=== PATIENT | male | born 1970 | race Caucasian/White ===

== ENCOUNTER → 2020-04-07 15:00 | Outpatient (BNVA) | payer OTHER, SELFPAY | PROVIDERS: PCP Family Medicine; Referring Provider Family Medicine; Visit Provider Internal Medicine Pulmonary Disease | DX: Z76.89 Persons encountering health services in other specified circumstances (principal) ==

== ENCOUNTER 2020-04-10 15:10 | Outpatient (REF) | payer OTHER, SELFPAY | END 2020-04-10 15:11 | disposition home or self-care (01) | LOC: HO.US 15:10 | PROVIDERS: PCP Family Medicine; Visit Provider Family Medicine | DX: R10.10 Upper abdominal pain, unspecified (principal) ==

== ENCOUNTER 2020-04-21 08:42 | Outpatient (REF) | payer OTHER, SELFPAY ==
--- NOTE | 2020-04-21 | US_ITS ---
EXAMINATION: US ABDOMEN LIMITED CLINICAL INFORMATION: Right upper quadrant abdominal pain. COMPARISON: Abdominal ultrasound dated 11/11/2016 TECHNIQUE: Real-time imaging of the right upper quadrant abdominal viscera. FINDINGS: PANCREAS: Small portions of the pancreas that are visualized appear normal in size and without ductal dilatation or retroperitoneal effusion. Much of the pancreas is obscured by bowel gas. LIVER: The liver is normal in size and smooth in contour. The liver parenchyma is homogeneous, borderline increased similar to prior study. There is no focal hepatic parenchymal lesion or intrahepatic ductal dilatation. GALLBLADDER: The gallbladder is distended normally to 3 cm in diameter. There is no thickening or calculi. There may be some trace non-shadowing sludge on decubitus positioning. Negative sonographic James's sign. No pericholecystic fluid. COMMON BILE DUCT: Normal in caliber measuring 0.50 cm in diameter. RIGHT KIDNEY: The right kidney measures 12.2 cm in length. Parenchyma of normal echogenicity and mild collecting system without overt hydronephrosis. No visible renal calculi or perinephric fluid. FREE FLUID: None. IMPRESSION: 1. Question trace sludge gallbladder. Negative sonographic James's sign. No gallbladder wall thickening or ductal dilatation. 2. Mild fullness right renal collecting system. No visible calculi.
== END 2020-04-21 08:43 | disposition home or self-care (01) ==
LOC: HO.US 08:42
PROVIDERS: PCP Family Medicine; Visit Provider Family Medicine
DX: R10.11 Right upper quadrant pain (principal)
CPT/HCPCS: 76705

== ENCOUNTER 2020-05-20 07:32 | Outpatient (REF) | payer OTHER, SELFPAY | END 2020-05-20 07:33 | disposition home or self-care (01) | LOC: HO.MDS 07:32 | PROVIDERS: PCP Internal Medicine; Visit Provider Internal Medicine Pulmonary Disease | DX: J45.50 Severe persistent asthma, uncomplicated (principal) | CPT/HCPCS: 96372; J0517 ==

== ENCOUNTER → 2020-08-06 15:26 | Outpatient (BNVA) | payer OTHER, SELFPAY | PROVIDERS: PCP Family Medicine; Visit Provider Internal Medicine Pulmonary Disease ==

== ENCOUNTER 2020-08-31 07:25 | Outpatient (REF) | payer OTHER, SELFPAY | END 2020-08-31 07:26 | disposition home or self-care (01) | LOC: HO.MDS 07:25 | PROVIDERS: PCP Family Medicine; Visit Provider Internal Medicine Pulmonary Disease | DX: J45.50 Severe persistent asthma, uncomplicated (principal) | CPT/HCPCS: 96372; J2357 ==

== ENCOUNTER 2023-03-13 09:13 | Outpatient (AMB) | payer OTHER, SELFPAY ==
--- NOTE | 2023-03-13 09:20 | AM.OFFWIN_ITS ---
Intake Vital Signs 03/13/23 09:21 Height 5 ft 8 in Weight 219 lb 2 oz BMI 33.3 BP 124/86 Blood Pressure Location Rt brachial Position Sitting Respiration 12 Pulse 86 Pulse Source Pulse Oximeter Temp 97.8 F Temp Source Temporal Artery Scan Pulse Oximetry (%) 98 Oxygen Delivery Method Room Air Intake Visit Reasons: ankle swelling post bee sting Intake Note: Patient states that he was stung yesterday and hasn't gone down since. Patient would like refills on all 4 of his medications as well. 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 Patient states that he was stung yesterday and swelling hasn't gone down since. He has been taking zyrtec/benadryl. He denies any difficulty swallowing/tightness in his throat/difficulty breathing. He states it has been awhile since his last tetanus shot. [facility] Social History Housing: House Patient Tobacco Use Status: Never used Tobacco e-Cigarette/Vaping Use: Never Used Second Hand Smoke Exposure: No service: No Current occupational status: employed Current occupational exposures/hazards: No Cognitive needs: No Hearing needs: No Vision needs: No Review of Systems Const Denies chills, Denies fatigue, Denies fever(s), Denies headache(s) and Denies weakness ENT Denies dizziness and Denies headache(s) Card Denies chest pain, Denies lightheadedness, Denies dyspnea and Denies other (Palpitations) Resp Denies cough, Denies dyspnea, Denies wheezing and Denies other ( shortness of breath) Musc Denies numbness and Denies tingling Neuro Denies dizziness, Denies headache(s), Denies numbness, Denies tingling, Denies paresthesias and Denies weakness Psych Denies anxiety and Denies depression Endo Denies fatigue Aller/Immun Denies wheezing Physical Exam Vital Signs: Last Vital Signs Temp 97.8 F 03/13/23 09:21 Pulse 86 03/13/23 09:21 Resp 12 03/13/23 09:21 BP 124/86 03/13/23 09:21 Pulse Ox 98 03/13/23 09:21 Oxygen Delivery Method Room Air 03/13/23 09:21 BMI result Body Mass Index 33.3 Const General: no acute distress and well developed Nutritional Appearance: well nourished Orientation/consciousness: patient oriented x3 HEENT Head: Yes normocephalic and Yes atraumatic Eyes General: appearance normal, both eyes and all related structures Pupils: Equal, round and reactive pupils present EOM: EOMs intact bilaterally Resp Effort & Inspection: normal respiratory effort Auscultation: clear to auscultation bilaterally Cardio Rate: regular rate Rhythm: regular rhythm Heart sounds: S1 normal heart sound present, S2 normal heart sound present, no gallops, no murmurs and no rubs Neuro General: patient oriented x3 and gait normal Cranial nerves: Yes Equal, round and reactive pupils present Extrem Other: Severe R ankle swelling Psych Affect: normal affect Assessment & Plan Assessment & Plan (1) Bee sting: Code(s): T63.441A - Toxic effect of venom of bees, accidental (unintentional), initial encounter Plan: Bee/yellow jacket stings at right ankle. No stingers in wound; likely yellow jacket stings Moderately severe swelling at right ankle. Will give him a script for a prednisone taper and he should use ice and elevation. Continue Zyrtec during the day and he can use Benadryl at night Patient notes that reactions to stings have gotten worse as he has gotten older. Will give him a script for an EpiPen. He is overdue for a tetanus shot which he will receive today (2) Ankle swelling: Code(s): M25.473 - Effusion, unspecified ankle Plan: As above (3) Immunization counseling: Code(s): Z71.85 - Encounter for immunization safety counseling Plan: As above Orders: Orders TDaP Immunization Today Z23 - Encounter for immunization Medications: New prednisone 4 tabs daily for 4 days, 3 tabs daily for 2 days, 2 tabs daily for 2 days, 1 tab daily for 2 days PO daily; 28 tabs 0RF 10 days epinephrine (EpiPen 2-Jeyson) 0.3 mg (0.3 mL) IM Q4H PRN 2 ea 2RF anaphylaxis 30 days Coding Level of Care Code Est Pt Level 3 (51533) Diagnoses Bee sting T63.441A Ankle swelling M25.473 Immunization counseling Z71.85
[2023-03-13 09:21] VITALS: BP 124/86; PULSE 86; RESP 12; TEMP 36.6; O2SAT 98; BMI 33.3
== END 2023-03-13 09:51 | disposition home or self-care (01) ==
PROVIDERS: PCP Family Medicine; Visit Provider Family Medicine
DX: M25.471 Effusion, right ankle (principal); T63.441A Toxic effect of venom of bees, accidental (unintentional), initial encounter
CPT/HCPCS: 90471; 90715; 99213

== ENCOUNTER 2023-09-15 10:54 | Outpatient (AMB) | payer OTHER, SELFPAY ==
--- NOTE | 2023-09-15 10:55 | MHC.PC.OV ---
Vital Signs 09/15/23 10:59 Height 5 ft 8 in Weight 217 lb BMI 33.0 BP 130/86 Blood Pressure Location Lt brachial Position Sitting Pulse 87 Pulse Source Pulse Oximeter Pulse Oximetry (%) 96 Oxygen Delivery Method Room Air Intake Visit Reasons: CPE Intake Note: Pt presents to the office today for a CPE. Pt states he is feeling okay but states he is looking for anxiety medications again because he has been having anxiety after resigning from his job. He also would like his hormone levels checked as well. Allergies No Known Allergies Allergy (Verified 09/15/23 11:00) Tobacco use date assessed: 09/15/23 Dental Screening Dental Screen Date: 09/15/23 Did you have a dental visit in the last 12 months?: Yes Did you have a dental problem in the last 6 months where you did not have access to dental care?: No Was dental information given to patient?: Patient has dentist HPI CPE HPI Details 53 y/o male presents for a CPE with f/u labs and health maintenance. No recent labs to review. Pt requests a refill of his citalopram as he notes this does help. PFSH Family History (Updated 09/15/23 @ 11:01 by Aster Yee MA) Other Mental health disorder Social History Housing: House Patient Tobacco Use Status: Never used Tobacco e-Cigarette/Vaping Use: Never Used Second Hand Smoke Exposure: No service: No Current occupational status: employed Current occupational exposures/hazards: No Cognitive needs: No Hearing needs: No Vision needs: No Questionnaire PHQ-9 Over the last 2 weeks, how often have you been bothered by any of the following problems? 1. Little interest or pleasure in doing things: not at all 2. Feeling down, depressed, or hopeless: not at all 3. Trouble falling or staying asleep, or sleeping too much: nearly every day 4. Feeling tired or having little energy: nearly every day 5. Poor appetite or overeating: more than half the days 6. Feeling bad about yourself - or that you are a failure or have let yourself or your family down: more than half the days 7. Trouble concentrating on things, such as reading the newspaper or watching television: more than half the days 8. Moving or speaking so slowly that other people could have noticed. Or the opposite - being so fidgety or restless that you have been moving around a lot more than usual: not at all 9. Thoughts that you would be better off or of hurting yourself in some way: not at all Total score: 12 Depression Screening Interpretation: Positive Depression Screening Done: Yes 55549 - PHQ-9 Billing: Yes Source: Developed by Drs. Huseyin Lara, Kelli Tierney, Kosta Sparks and colleagues, with an educational alee from [employer]. Thrive Questionnaire Date Thrive assessed: 09/15/23 I am a: Patient What is your living situation today?: I have a steady place to live Within the past 12 months, did the food you bought not last and you didn't have the money to get more?: Never true Within the past 12 months, did you worry whether your food would run out before you got money to buy more?: Never true Do you have trouble paying for medicines?: No Do you have trouble getting transportation to medical appointments?: No Do you have trouble paying your heating and electricity bill?: No Do you have trouble taking care of your child, family member or friend?: No Do you have trouble with day-to-day activities such as bathing, preparing meals, shopping, managing finances, etc.?: No Are you currently unemployed and looking for a job?: Yes Are you interested in more education?: No THRIVE Score: 0 AUDIT C Alcohol Use Questionnaire (AUDIT-C) 1. How often do you have a drink containing alcohol?: 4 or more times a week 2. How many drinks containing alcohol do you have on a typical day when you are drinking?: 1 or 2 3. How often do you have six or more drinks on one occasion?: Never Total Score: 4 ADRIAN-7 AMB Questionnaire ADRIAN-7 Date ADRIAN - 7 assessed: 09/15/23 Feeling nervous, anxious, or on edge: 3 = Nearly every day Not being able to stop or control worryin = More than half the days Worrying too much about different things: 3 = Nearly every day Trouble relaxin = More than half the days Being so restless that it is hard to sit still: 0 = Not at all Becoming easily annoyed or irritable: 3 = Nearly every day Feeling afraid as if something awful might happen: 3 = Nearly every day Total ADRIAN-7 score (0-4 normal; 5-9 mild; 10-14 moderate; 15-21 severe): 16 Source: Developed by Drs. Huseyin Lara, Kelli Tierney, Kosta Sparks and colleagues, with an educational alee from [employer]. ADRIAN-7 Assessment Billing ADRIAN-7 Assessment Tool: ADRIAN-7 Assessment 78230 Physical exam (Primary Care) Vital Signs: Last Vital Signs Pulse 87 09/15/23 10:59 BP 130/86 09/15/23 10:59 Pulse Ox 96 09/15/23 10:59 Oxygen Delivery Method Room Air 09/15/23 10:59 BMI result Body Mass Index 33.0 Tobacco/Smoking Status: Tobacco use Status Tobacco use date assessed 09/15/23 09/15/23 11:06 Patient Tobacco Use Status Never used Tobacco 09/15/23 11:06 e-Cigarette/Vaping Use Never Used 09/15/23 11:06 PHQ-9: PHQ-9 Score PHQ-9: Total score 12 09/15/23 11:06 Depression Screening Interpretation: Positive Thrive Assessment: Date of Thrive Assessment Date Thrive assessed 09/15/23 09/15/23 11:06 Assessment and Plan Assessment & Plan (1) Annual physical exam: Code(s): Z00.00 - Encounter for general adult medical examination without abnormal findings Plan: 53-year-old?male?presents?for?complete?physical?exam Encouraged?healthy?diet?with?active?lifestyle?and?plenty?of?exercise (2) Obstructive sleep apnea: Code(s): G47.33 - Obstructive sleep apnea (adult) (pediatric) Plan: Only?using?his?CPAP?intermittently?and?he?does?note?that?he?has?fatigue. Encouraged?him?to?use?this?more?consistently. (3) Anxiety: Code(s): F41.9 - Anxiety disorder, unspecified Plan: Anxiety?has?resumed. Citalopram?had?helped?in?the?past?and?we?will?restart?this. Also?encouraged?him?to?wean?off?of?alcohol (4) GERD (gastroesophageal reflux disease): Code(s): K21.9 - Gastro-esophageal reflux disease without esophagitis Plan: Will?trial?famotidine Avoid?eating?late?at?night?and?avoid?alcohol?at?night (5) Low libido: Code(s): R68.82 - Decreased libido Plan: Check?testosterone Patient?notes?that?he?has?been?trying?testosterone?he?acquired?from?the?Internet.??He?will?stop?taking?this?times?a?couple?more?weeks?to?get?his?T?levels?checked. Advised him?that?taking?testosterone?unsupervised?can?lead?to?significant?adverse?effects.??Patient?understands (6) Screening for prostate cancer: Code(s): Z12.5 - Encounter for screening for malignant neoplasm of prostate Plan: Check?PSA (7) Screening for colon cancer: Code(s): Z12.11 - Encounter for screening for malignant neoplasm of colon Plan: Referred?to?GI?for?1st?colonoscopy Orders: Orders Comprehensive [place]. Panel Fast Today Z00.00 - Encounter for general adult medical examination without abnormal findings Lipid Panel Today Z00.00 - Encounter for general adult medical examination without abnormal findings Microalbumin, Random (w Creat) Today I10 - Essential (primary) hypertension TSH reflex Free T4 Today Z00.00 - Encounter for general adult medical examination without abnormal findings UA and rflx microscopic Today Z00.00 - Encounter for general adult medical examination without abnormal findings Testosterone, Free/Total Today Z00.00 - Encounter for general adult medical examination without abnormal findings Prostate Specific Antigen Scr Today Z12.5 - Encounter for screening for malignant neoplasm of prostate Referrals Gastroenterology Referral Z12.11 - Encounter for screening for malignant neoplasm of colon Medications: New fluticasone propionate 220 mcg/actuation 2 puffs inhalation BID 12 grams 3RF 30 days famotidine 20 mg PO BEDTIME 90 tabs 1RF 90 days Changed From citalopram 20 mg PO DAILY 30 tabs 3RF F41.9 - Anxiety disorder, unspecified To citalopram 20 mg PO DAILY 30 tabs 3RF 30 days F41.9 - Anxiety disorder, unspecified Refilled levalbuterol HCl 1.25 mg (3 mL) inhalation Q8H 270 mL 3RF 30 days Z00.00 - Encounter for general adult medical examination without abnormal findings Discontinued omeprazole Discontinued Reason: Doctor's Order 40 mg PO DAILY 10 days 10 caps 0RF Coding Level of Care Code Est Pt Level 3 (46417) Est Pt Prev Care 40-64y(33408) Diagnoses Annual physical exam Z00.00 Obstructive sleep apnea G47.33 Anxiety F41.9 GERD (gastroesophageal reflux disease) K21.9 Low libido R68.82 Screening for prostate cancer Z12.5 Screening for colon cancer Z12.11 Additional Codes ADRIAN-7 Assessment Billing - ADRIAN-7 Assessment Tool: ADRIAN-7 Assessment 21111 ([id number])
[2023-09-15 10:59] VITALS: BP 130/86; PULSE 87; O2SAT 96; BMI 33.0
== END 2023-09-15 11:35 | disposition home or self-care (01) ==
PROVIDERS: PCP Family Medicine; Visit Provider Family Medicine
DX: Z00.00 Encounter for general adult medical examination without abnormal findings (principal); G47.33 Obstructive sleep apnea (adult) (pediatric); F41.9 Anxiety disorder, unspecified; K21.9 Gastro-esophageal reflux disease without esophagitis; R68.82 Decreased libido; Z12.5 Encounter for screening for malignant neoplasm of prostate; Z12.11 Encounter for screening for malignant neoplasm of colon
CPT/HCPCS: 96127; 99213; 99396

== ENCOUNTER 2023-10-13 11:09 | Outpatient (REF) | payer OTHER, SELFPAY ==
[2023-10-13 15:42] LABS: Alanine Aminotransferase 24 U/L (0-40); Alkaline Phosphatase 53 U/L (39-117); Anion Gap 11 (12-20); Aspartate Amino Transferase 19 U/L (5-37); Bilirubin Total 0.4 mg/dL (0.0-1.0); Blood Urea Nitrogen 12 mg/dL (9-16); Carbon Dioxide 26 mmol/L (22-29); Chloride 106 mmol/L (96-108); Cholesterol 205 mg/dL (<200); Estimated Glomerular Filt Rate > 60; Glucose Fasting 110 mg/dL (60-99); HDL Cholesterol 64 mg/dL (>40); LDL Cholesterol Calculated 133 mg/dL (<100); Potassium 4.1 mmol/L (3.3-5.1); Sodium 139 mmol/L (135-145); Total Protein 6.8 g/dL (6.5-8.0); Triglycerides 44 mg/dL (<150)
[2023-10-13 15:52] LABS: Prostate Specific Antigen Scr 0.43 ng/mL (<0.05-4.0)
[2023-10-13 15:57] LABS: TSH reflex Free T4 1.08 uIU/mL (0.32-4.0)
[2023-10-18 20:08] LABS: Testosterone, Free 73.3 pg/mL (35.0-155.0); Testosterone, Total 434 ng/dL (250-1100)
== END 2023-10-13 11:10 | disposition home or self-care (01) ==
LOC: HO.WFDLDS 11:09
PROVIDERS: Visit Provider Family Medicine
DX: Z00.00 Encounter for general adult medical examination without abnormal findings (principal); Z12.5 Encounter for screening for malignant neoplasm of prostate; Z13.6 Encounter for screening for cardiovascular disorders
CPT/HCPCS: 36415; 80053; 80061; 84153; 84402; 84403; 84443

== ENCOUNTER 2023-10-27 13:16 | Outpatient (AMB) | payer OTHER, SELFPAY ==
[2023-10-27 13:20] VITALS: BP 138/80; PULSE 94; O2SAT 97; BMI 33.3
--- NOTE | 2023-10-27 13:20 | MHC.PC.OV ---
Vital Signs 10/27/23 13:20 Height 5 ft 8 in Weight 219 lb BMI 33.3 BP 138/80 Blood Pressure Location Lt brachial Position Sitting Pulse 94 Pulse Source Pulse Oximeter Pulse Oximetry (%) 97 Oxygen Delivery Method Room Air Intake Visit Reasons: f/u anxiety and labwork Intake Note: Patient is here for follow up on anxiety and lab work. Patient was unable to get his inhaler due to insurance not paying for it. Allergies No Known Allergies Allergy (Verified 10/27/23 13:24) Tobacco use date assessed: 10/27/23 Dental Screening Dental Screen Date: 09/15/23 HPI f/u anxiety and labwork HPI Details 53 y/o male presents to f/u anxiety and labwork. Checked testosterone for low libido. Labs were drawn 10/13/23. Reviewed labs with pt. Elevated fasting glucose of 110. Last A1c 06/02/20 5.3%. A1c today 5.4%. Triglycerides 44. TC 205. LDL 133. HDL 64. Testosterone levels are fine. Pt notes he feels like he has not needed citalopram for a couple weeks but he feels like he needs a therapist to discuss the job he has lost. PFSH Family History Other Mental health disorder Social History Housing: House Patient Tobacco Use Status: Never used Tobacco e-Cigarette/Vaping Use: Never Used Second Hand Smoke Exposure: No service: No Current occupational status: employed Current occupational exposures/hazards: No Cognitive needs: No Hearing needs: No Vision needs: No Questionnaire Thrive Questionnaire Date Thrive assessed: 09/15/23 ADRIAN-7 AMB Questionnaire ADRIAN-7 Date ADRIAN - 7 assessed: 09/15/23 Source: Developed by Drs. Huseyin Lara, Kelli Tierney, Kosta Sparks and colleagues, with an educational alee from [employer]. Review of Systems Const Denies chills, Denies fatigue, Denies fever(s), Denies headache(s) and Denies weakness ENT Denies dizziness and Denies headache(s) Card Denies dyspnea Resp Denies cough, Denies dyspnea, Denies wheezing and Denies other (shortness of breath) Musc Denies numbness and Denies tingling Neuro Denies dizziness, Denies headache(s), Denies numbness, Denies tingling and Denies weakness Psych Denies anxiety and Denies depression Endo Denies fatigue Aller/Immun Denies wheezing Physical exam (Primary Care) Vital Signs: Last Vital Signs Pulse 94 10/27/23 13:20 BP 138/80 10/27/23 13:20 Pulse Ox 97 10/27/23 13:20 Oxygen Delivery Method Room Air 10/27/23 13:20 BMI result Body Mass Index 33.3 Tobacco/Smoking Status: Tobacco use Status Tobacco use date assessed 10/27/23 10/27/23 13:31 Patient Tobacco Use Status Never used Tobacco 10/27/23 13:31 e-Cigarette/Vaping Use Never Used 10/27/23 13:31 Thrive Assessment: Date of Thrive Assessment Date Thrive assessed 09/15/23 10/27/23 13:31 Const General: well developed; No acute distress Nutritional Appearance: well nourished Orientation/consciousness: patient oriented x3 HENMT Head: Yes normocephalic and Yes atraumatic Eyes General: appearance normal, both eyes and all related structures Pupils: Equal, round and reactive pupils present EOM: EOMs intact bilaterally Resp Effort & Inspection: normal respiratory effort Neuro General: patient oriented x3 and gait normal Cranial nerves: Yes Equal, round and reactive pupils present Psych Affect: normal affect Results AMB Hemoglobin A1c AMB Hemoglobin A1c 5.4 % Last Edit by Jessica Miller CMA on 10/27/23 14:21 Assessment and Plan Assessment & Plan (1) Anxiety: Code(s): F41.9 - Anxiety disorder, unspecified Plan: Stable?at?present. Patient?uses?citalopram?for?several?weeks?or?a?month?at?a?time?and?then?discontinues?it?when?he?is?feeling?okay. Advised?him?that?the?medication?works?better?when?he?uses?it?for?long?periods?of?time. Discussing?a?compromise,?he?will?consider?stressors?in?his?life?as?well?as?how?he?is?feeling?before?discontinuing?medication. (2) Elevated fasting blood sugar: Code(s): R73.01 - Impaired fasting glucose Plan: A1c: 5.4% Within?normal?range Encouraged?diet?lower?in?sugars?and?starches (3) Low libido: Code(s): R68.82 - Decreased libido Plan: Testosterone?level?is?okay Offered?referral?to?urology (4) Hypercholesterolemia: Code(s): E78.00 - Pure hypercholesterolemia, unspecified Plan: Mildly?elevated?LDL?cholesterol?but?his?HDL?ratios?are?good (5) Screening for prostate cancer: Code(s): Z12.5 - Encounter for screening for malignant neoplasm of prostate Plan: PSA?is?within?normal?limits Orders: Orders AMB Hemoglobin A1c Today Z13.9 - Encounter for screening, unspecified Medications: New mometasone 200 mcg/actuation 1 puff inhalation BID 30 days 13 grams 3RF Discontinued fluticasone propionate 220 mcg/actuation Discontinued Reason: Doctor's Order 2 puffs inhalation BID 30 days 12 grams 3RF Coding Level of Care Code Est Pt Level 4 (42241) Diagnoses Anxiety F41.9 Elevated fasting blood sugar R73.01 Low libido R68.82 Hypercholesterolemia E78.00 Screening for prostate cancer Z12.5
== END 2023-10-27 14:27 | disposition home or self-care (01) ==
PROVIDERS: PCP Family Medicine; Visit Provider Family Medicine
DX: F41.9 Anxiety disorder, unspecified (principal); R73.01 Impaired fasting glucose; R68.82 Decreased libido; E78.00 Pure hypercholesterolemia, unspecified
CPT/HCPCS: 83036; 99214

== ENCOUNTER 2024-03-23 11:49 | Outpatient (AMB) | payer OTHER, SELFPAY ==
[2024-03-23 11:56] VITALS: BP 130/80; PULSE 86; TEMP 36.6; O2SAT 98
--- NOTE | 2024-03-23 11:56 | MHC.OFFWIV ---
Intake Vital Signs 03/23/24 11:56 Height 5 ft 8 in BP 130/80 Blood Pressure Location Rt brachial Position Sitting Pulse 86 Pulse Source Pulse Oximeter Temp 97.9 F Temp Source Temporal Artery Scan Pulse Oximetry (%) 98 Intake Visit Reasons: EP lower back pain Intake Note: pt is here for lower back pain, denies injury Patient Tobacco Use Status: Never used Tobacco Allergies No Known Allergies Allergy (Verified 03/23/24 11:57) Do you need a note to return to daycare/school/sports/work: No HPI HPI Comments History of Present Illness Details he presents to office with back pain Better with standing Worse with sitting and movement Hx of back pain in past and has gone to PT in past for it Most recent flare he had stress and was driving to [employer] often and sleeping in a bad bed Tried icing and stretching but pain worsening No trauma Located both sides lower back Feels radiation into gluteal region and legs No urine or bowel incontinence No saddle parethesias Pain level is 9/10 intermittent He has been trying to stretch, icy hot Naproxen and motrin with ice No complete resolution PFSH Family History Other Mental health disorder Social History Housing: House Patient Tobacco Use Status: Never used Tobacco e-Cigarette/Vaping Use: Never Used Second Hand Smoke Exposure: No service: No Current occupational status: employed Current occupational exposures/hazards: No Cognitive needs: No Hearing needs: No Vision needs: No Review of Systems Const Denies chills, Denies fatigue, Denies fever(s) and Denies frequent falls Card Denies chest pain and Denies dyspnea Resp Denies cough and Denies dyspnea GI Denies abdominal pain, Denies change in bowel habits and Denies fecal incontinence Denies hematuria and Denies urinary incontinence Musc Reports back pain and Denies tingling Skin/Breast Denies rash Neuro Denies frequent falls, Denies tingling and Denies paresthesias Endo Denies fatigue Physical Exam Vital Signs: Last Vital Signs Temp 97.9 F 03/23/24 11:56 Pulse 86 03/23/24 11:56 BP 130/80 03/23/24 11:56 Pulse Ox 98 03/23/24 11:56 General: Non-toxic, NAD. Speaking full sentences. Skin: Warm dry throughout. No posterior back of flank ecchymosis or rash Eye: EOMI Respiratory: CTA bilaterally. No wheezes, rales or rhonchi Cardiac: RRR. No murmur MSK: Standing. No midline tenderness. + TTP bilateral lumbar paravertebral muscles. + flexion of thigh to abdomen. Pain with standing SLR bilaterally. + glutea pain bilaterally. Neurology: A/O x 3. No aphasia or facial droop. Gait without abnormality Psych: Good mood and affect Assessment & Plan Assessment & Plan (1) Lumbar back pain: Code(s): M54.50 - Low back pain, unspecified Plan: Patient seen and evaluated. 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
== END 2024-03-23 13:33 | disposition home or self-care (01) ==
PROVIDERS: PCP Family Medicine; Visit Provider Physician Assistant
DX: M54.50 Low back pain, unspecified (principal)

== ENCOUNTER → 2024-03-23 11:49 | Outpatient (BNVA) | payer OTHER, SELFPAY | PROVIDERS: PCP Family Medicine | DX: M54.50 Low back pain, unspecified (principal) | CPT/HCPCS: 99212 ==

== ENCOUNTER 2025-01-06 14:52 | Outpatient (AMB) | payer OTHER, SELFPAY ==
--- NOTE | 2025-01-06 15:20 | AM.OFFWIN_ITS ---
Intake Vital Signs 01/06/25 15:21 Height 5 ft 8 in Weight 213 lb BMI 32.4 BP 118/86 Blood Pressure Location Rt brachial Position Sitting Pulse 84 Pulse Source Pulse Oximeter Temp 98.9 F Temp Source Oral Pulse Oximetry (%) 95 Oxygen Delivery Method Room Air Intake Visit Reasons: EP Tick bite, infected? Intake Note: presents with red, sensitive, thickened, enlarging area on right mid abdomen x2 weeks after a tick bite. Also c/o headache since this happened Patient Tobacco Use Status: Never used Tobacco Allergies No Known Allergies Allergy (Verified 01/06/25 15:28) Do you need a note to return to daycare/school/sports/work: No HPI HPI Comments History of Present Illness Details History - The patient is a 54-year-old male pres enting with a tick bite. - The patient reports being bitten by a tick a couple of weeks ago, noticing a red spot with a tiny black center. - He attempted to remove the tick and ap plied Neosporin to the area. - A week ago, while on vacation in [place] , he observed the area getting larger. - The patient has a history of Lyme dise ase, previously treated with IV antibiotics for a bullseye rash on the leg. - Currently, the area is warm and stiff when he touches it. - He has been keeping the area clean and putting antibiotic ointment on it. - He denies fever, chills, joint pain, r ashes or other lesions. Physical Exam General: Cooperative, healthy appearing, comfortable, no acute distress and well developed Orientation: Patient oriented x3 Respiratory: Normal respiratory effort and able to speak in complete sentences. Skin: Erythematous, flat, oval shaped area noted on the right mid abdomen. No induration noted. No discharge or bleeding noted. No streaking noted. Neuro: Patient oriented x3 Patient was informed and verbally consented to the use of an ambient scribe for clinic note documentation during this visit. PFSH Family History Other Mental health disorder Social History Housing: House Patient Tobacco Use Status: Never used Tobacco e-Cigarette/Vaping Use: Never Used Second Hand Smoke Exposure: No service: No Current occupational status: employed Current occupational exposures/hazards: No Cognitive needs: No Hearing needs: No Vision needs: No Review of Systems Const All systems reviewed & are unremarkable except as noted in HPI and below Physical Exam Vital Signs: Last Vital Signs Temp 98.9 F 01/06/25 15:21 Pulse 84 01/06/25 15:21 BP 118/86 01/06/25 15:21 Pulse Ox 95 01/06/25 15:21 Oxygen Delivery Method Room Air 01/06/25 15:21 BMI result Body Mass Index 32.4 Assessment & Plan Assessment & Plan (1) Tick bite of abdomen: Code(s): S30.861A - Insect bite (nonvenomous) of abdominal wall, initial encounter; W57.XXXA - Bitten or stung by nonvenomous insect and other nonvenomous arthropods, initial encounter Qualifiers: Encounter type: initial encounter Qualified Code(s): S30.861A - Insect bite (nonvenomous) of abdominal wall, initial encounter; W57.XXXA - Bitten or stung by nonvenomous insect and other nonvenomous arthropods, initial encounter Plan Most likely tick bite with cellulitis Plan - Keep area clean and dry - Initiate doxycycline treatment to prevent Lyme disease and manage cellulitis. - Advise the patient to monitor the area for changes and avoid sun exposure while on doxycycline. - Recommend topical triple antibiotic ointment for local application - follow up with PCP - can order a Lyme panel if necessary - watch for signs of worsening infection Medications: New doxycycline hyclate 100 mg PO BID 20 tabs 0RF 10 days mupirocin 2% 1 appl topical TID 22 grams 0RF Coding Level of Care Code Est Pt Level 3 (92408) Diagnoses Tick bite of abdomen, initial encounter S30.861A; W57.XXXA Encounter type: initial encounter
[2025-01-06 15:21] VITALS: BP 118/86; PULSE 84; TEMP 37.2; O2SAT 95; BMI 32.4
--- OUTSIDE RECORDS SUMMARY | 2025-01-06 15:22 | XMS_ITS | Clinical Summary ---
Author Organization [facility] [employer] [facility] lin Address [address] [facility] [place] [address] Care Team Providers Care Business Continuity Planning Director Name Role Phone Rajiv Lyons MD Primary Care Provider Social History Tobacco Use Types Packs/Day Years Used Date Smoking Tobacco: Never Assessed Sex and Gender Information Value Date Recorded Sex Assigned at Not on file Legal Sex Male 10:05 AM EDT Gender Identity Not on file Sexual Orientation Not on file Plan of Treatment Health Maintenance Due Date Last Done Comments Colorectal Cancer: COLONOSCO PY Screening every 10 yrs (or Modifier) 1972 Depression: Screening Annual ly using PHQ-2/9 in Adults 18 yrs or above (or HM Modifier)([facility]) 1990 Hepatitis C Virus Infection in Adolescents and Adults: Screening (or Modifier) ([facility]) 1990 [facility] Screening Reminder: Tamia camp for all adults ([facility]) 1990 Tobacco Smoking Cessation: i n Adults excluding Women: Behavioral and Pharmacotherapy Interventions ([facility]) 1990 DTaP/Tdap/Td Vaccines ([facility]) (1 - Tdap) 1991 Colorectal Cancer Screening 45 -75 Yrs (or HM Modifier ) 2017 Colorectal Cancer: FLEXIBLE SIGMOIDOSCOPY Screening every 5 yrs 2017 Colorectal Cancer: Fecal Imm unochemical Test (FIT) Annually [facility] 2017 Colorectal Cancer: High-sens itivity gFOBT Screening Annually [facility] 2017 Colorectal Cancer: Stool Col oguard Screening every 3 yrs 2017 Colorectal Cancer:CT Colonography Screening every 5 yr s 2017 Pneumococcal Vaccination Scr eening: Patients 50+ yrs of age ([facility]) (1 of 1 - PCV) 2022 Zoster/Shingles Vaccine Seri es Screening: Adults aged 18+ yrs (or HM Modifiers)([facility]) (1 of 2) 2022 COVID-19 Vaccine Screening: Initial Series and Booster Status ([facility]) (2023- season) 2024 Flu Vaccination: Yearly for ages 18mos through 64 years (or Modifier)([facility]) 01/31/2025 Medical Devices Not on file Insurance [facility] Care Teams Business Continuity Planning Director Relationship Specialty Start Date End Date Rajiv Lyons MD [address] [place] [phone] PCP - General 04/18/20
== END 2025-01-06 15:51 | disposition home or self-care (01) ==
PROVIDERS: PCP Family Medicine; Visit Provider Physician Assistant Medical
DX: S30.861A Insect bite (nonvenomous) of abdominal wall, initial encounter (principal); W57.XXXA Bitten or stung by nonvenomous insect and other nonvenomous arthropods, initial encounter

== ENCOUNTER → 2025-01-06 14:52 | Outpatient (BNVA) | payer OTHER, SELFPAY | PROVIDERS: PCP Family Medicine; Visit Provider Physician Assistant Medical | DX: S30.861A Insect bite (nonvenomous) of abdominal wall, initial encounter (principal); W57.XXXA Bitten or stung by nonvenomous insect and other nonvenomous arthropods, initial encounter | CPT/HCPCS: 99212 ==

== ENCOUNTER 2025-03-28 09:28 | Outpatient (AMB) | payer OTHER, SELFPAY ==
--- NOTE | 2025-03-28 09:31 | A.OFFPC_ITS ---
Vital Signs 03/28/25 09:34 Height 5 ft 8 in Weight 211 lb 6 oz BMI 32.1 BP 142/80 H Blood Pressure Location Lt brachial Position Sitting Respiration 14 Pulse 86 Pulse Source Pulse Oximeter Temp 97.5 F Temp Source Oral Pulse Oximetry (%) 98 Oxygen Delivery Method Room Air Intake Visit Reasons: F/u Tick bite Intake Note: CPE Collar Worker Required: No Allergies No Known Allergies Allergy (Verified 03/28/25 09:32) Medication List - Last Reconciled 03/28/25 by Rajiv Gaines MD citalopram 20 mg orally takes during fall/winter; doxycycline hyclate 100 mg PO BID 10 days levalbuterol tartrate 45 mcg/actuation 2 puffs inhalation Q4-6H PRN 90 days mupirocin 2% 1 appl topical TID Tobacco use date assessed: 03/28/25 Dental Screening Dental Screen Date: 03/28/25 Did you have a dental visit in the last 12 months?: No Did you have a dental problem in the last 6 months where you did not have access to dental care?: No Was dental information given to patient?: Patient declined HPI F/u Tick bite HPI Details 54 y/o male presents today for a jamey osorio Had last seen the walk in clinic 01/06/25 for a tick bite. They had started him on doxycycline 10 days. Pt has never had a colonoscopy. PFSH Family History Other Mental health disorder Social History Housing: House Patient Tobacco Use Status: Never used Tobacco e-Cigarette/Vaping Use: Never Used Second Hand Smoke Exposure: No service: No Current occupational status: employed Current occupational exposures/hazards: No Cognitive needs: No Hearing needs: No Vision needs: No Questionnaire PHQ-9 Over the last 2 weeks, how often have you been bothered by any of the following problems? 1. Little interest or pleasure in doing things: several days 2. Feeling down, depressed, or hopeless: several days 3. Trouble falling or staying asleep, or sleeping too much: several days 4. Feeling tired or having little energy: several days 5. Poor appetite or overeating: several days 6. Feeling bad about yourself - or that you are a failure or have let yourself or your family down: several days 7. Trouble concentrating on things, such as reading the newspaper or watching television: several days 8. Moving or speaking so slowly that other people could have noticed. Or the opposite - being so fidgety or restless that you have been moving around a lot more than usual: not at all 9. Thoughts that you would be better off or of hurting yourself in some way: not at all Total score: 7 Depression Screening Interpretation: Positive Depression Screening Done: Yes 98854 - PHQ-9 Billing: Yes Source: Developed by Drs. Huseyin Lara, Kelli Tierney, Kosta Sparks and colleagues, with an educational alee from [employer]. Thrive Questionnaire Date Thrive assessed: 03/28/25 I am a: Patient What is your living situation today?: I have a steady place to live Within the past 12 months, did the food you bought not last and you didn't have the money to get more?: Never true Within the past 12 months, did you worry whether your food would run out before you got money to buy more?: Never true Do you have trouble paying for medicines?: No Do you have trouble getting transportation to medical appointments?: No Do you have trouble paying your heating and electricity bill?: No Do you have trouble taking care of your child, family member or friend?: No Do you have trouble with day-to-day activities such as bathing, preparing meals, shopping, managing finances, etc.?: No Are you currently unemployed and looking for a job?: Yes Are you interested in more education?: No Please select the resources that you would like help with: None Currently or been in a relationship where the following occur: No concerns reported THRIVE Score: 0 AUDIT C Alcohol Use Questionnaire (AUDIT-C) 1. How often do you have a drink containing alcohol?: 2-3 times a week 2. How many drinks containing alcohol do you have on a typical day when you are drinking?: 1 or 2 3. How often do you have six or more drinks on one occasion?: Never Total Score: 3 ADRIAN-7 AMB Questionnaire ADRIAN-7 Date ADRIAN - 7 assessed: 03/28/25 Feeling nervous, anxious, or on edge: 1 = Several days Not being able to stop or control worryin = Several days Worrying too much about different things: 1 = Several days Trouble relaxin = Several days Being so restless that it is hard to sit still: 0 = Not at all Becoming easily annoyed or irritable: 1 = Several days Feeling afraid as if something awful might happen: 1 = Several days Total ADRIAN-7 score (0-4 normal; 5-9 mild; 10-14 moderate; 15-21 severe): 6 Source: Developed by Drs. uHseyin Lara, Kelli Tierney, Kosta Sparks and colleagues, with an educational alee from [employer]. ADRIAN-7 Assessment Billing ADRIAN-7 Assessment Tool: ADRIAN-7 Assessment 86495 Review of Systems Const Denies chills, Denies fatigue, Denies fever(s), Denies headache(s) and Denies weakness Eyes Denies change in vision ENT Denies dizziness, Denies headache(s), Denies hearing loss, Denies nasal congestion, Denies sinus pain, Denies sinus pressure and Denies sore throat Card Denies chest pain, Denies lightheadedness, Denies dyspnea and Denies other (palpitations) Resp Denies cough, Denies dyspnea and Denies wheezing GI Denies abdominal pain, Denies melena, Denies hematochezia, Denies change in bowel habits, Denies dyspepsia and Denies nausea Denies hematuria and Denies dysuria Musc Denies abnormal gait, Denies myalgias, Denies arthralgias, Denies numbness and Denies tingling Skin/Breast Denies rash, Denies unusual bruising and Denies wounds Neuro Denies abnormal gait, Denies dizziness, Denies headache(s), Denies memory loss, Denies numbness, Denies Sensory deficit (Neuro), Denies tingling and Denies weakness Psych Denies anxiety, Denies depression and Denies memory loss Endo Denies cold intolerance, Denies fatigue, Denies heat intolerance, Denies polydipsia and Denies polyuria Michele/Lymph Denies easy bleeding and Denies easy bruising Aller/Immun Denies wheezing Physical exam (Primary Care) Vital Signs: Last Vital Signs Temp 97.5 F 03/28/25 09:34 Pulse 86 03/28/25 09:34 Resp 14 03/28/25 09:34 BP 142/80 H 03/28/25 09:34 Pulse Ox 98 03/28/25 09:34 Oxygen Delivery Method Room Air 03/28/25 09:34 BMI result Body Mass Index 32.1 Tobacco/Smoking Status: Tobacco use Status Tobacco use date assessed 03/28/25 03/28/25 09:36 Patient Tobacco Use Status Never used Tobacco 03/28/25 09:36 e-Cigarette/Vaping Use Never Used 03/28/25 09:36 PHQ-9: PHQ-9 Score PHQ-9: Total score 7 03/28/25 09:40 Depression Screening Interpretation: Positive Thrive Assessment: Date of Thrive Assessment Date Thrive assessed 03/28/25 03/28/25 09:36 Currently or been in a relationship where the following occur: No concerns reported Const General: no acute distress, well developed, alert and awake Nutritional Appearance: well nourished Orientation/consciousness: patient oriented x3 HENMT Head: Yes normocephalic and Yes atraumatic Ears: hearing grossly normal bilaterally and TM's normal bilaterally General nose exam: Normal external nose present and Normal nares present Mouth: Normal oral and palatal mucosa present and moist mucous membranes Teeth and gingiva: dentition normal Throat: Yes posterior oropharynx normal Eyes General: appearance normal, both eyes and all related structures Pupils: Equal, round and reactive pupils present and Pupil accommodation reflex normal EOM: EOMs intact bilaterally Neck Neck: Yes normal visual inspection, Yes no lymphadenopathy and Yes trachea midline Thyroid: Thyroid normal Carotids: no bruits Lymphatic: no lymphadenopathy noted Chest Chest palpation & inspection: normal inspection of the chest Resp Effort & Inspection: normal respiratory effort Auscultation: clear to auscultation bilaterally Cardio Rate: regular rate Rhythm: regular rhythm Heart sounds: S1 normal heart sound present, S2 normal heart sound present, no gallops, no murmurs and no rubs Bruits: no abdominal aortic bruits and no carotid bruits GI Palpation (GI): No Abdominal aortic bruit present, Soft to palpation, nontender, No hepatosplenomegaly present and No Rebound tenderness present Auscultation: normal bowel sounds General: Yes no CVA tenderness Back/Spine/Pelvis Back: no CVA tenderness Cervical Spine: cervical ROM normal and No Cervical spine tenderness Thoracic/Lumbar Spine: thoraco-lumbar ROM normal, No pain with thoraco-lumbar ROM, No thoracic spinal tenderness and No lumbar spinal tenderness Skin Lesions: no lesions Rashes: no rashes Trauma: no lacerations or abrasions Wounds: no wounds Nails: normal Neuro General: patient oriented x3 Cranial nerves: Yes Equal, round and reactive pupils present Cognition (Neuro): normal cognition Gait exam (Neuro): Normal gait present Motor exam (neuro): 5/5 motor strength present throughout Sensory Exam: No Sensory deficit (Neuro) Deep tendon reflexes (DTR's): Right patellar reflex intensity grade: 2+ and Left patellar reflex intensity grade: 2+ Extrem General: Yes normal to inspection and No edema Psych Appearance: grossly normal Affect: normal affect Attitude: cooperative Thought process: Normal thought process present Coding Level of Care Code Est Pt Level 3 (70615) Est Pt Prev Care 40-64y(23670) Diagnoses Adult general medical examination Z00.00 Tick bite W57.XXXA Screening for prostate cancer Z12.5 Screening for colon cancer Z12.11 Asthma J45.909 Additional Codes ADRIAN-7 Assessment Billing - ADRIAN-7 Assessment Tool: ADRIAN-7 Assessment 85788 ([id number]) PHQ-9 - 36195 - PHQ-9 Billing: Yes ([id number]) Assessment & Plan Assessment & Plan (1) Adult general medical examination: Code(s): Z00.00 - Encounter for general adult medical examination without abnormal findings Category: Medical Plan: 54-year-old male presents for complete physical exam Encouraged healthy diet with active lifestyle and plenty of exercise (2) Tick bite: Code(s): W57.XXXA - Bitten or stung by nonvenomous insect and other nonvenomous arthropods, initial encounter Category: Medical Plan: Patient had tick bite with erythema migrans brain fog Was given short course of doxycycline To soon check titers which be positive. Will give him a longer course doxycycline (3) Screening for prostate cancer: Code(s): Z12.5 - Encounter for screening for malignant neoplasm of prostate Category: Medical Plan: Check PSA (4) Screening for colon cancer: Code(s): Z12.11 - Encounter for screening for malignant neoplasm of colon Category: Medical Plan: Patient has never had colonoscopy. Referred to Gastroenterology (5) Asthma: Code(s): J45.909 - Unspecified asthma, uncomplicated Category: Medical Plan: No wheezing and patient is breathing easily today however he notes that he gets intermittent wheezing He has been on levalbuterol in the past due to albuterol causing tachycardia Orders: Orders Microalbumin, Random (w Creat) Today I10 - Essential (primary) hypertension, Z00.00 - Encounter for general adult medical examination without abnormal findings Prostate Specific Antigen Scr Today Z00.00 - Encounter for general adult medical examination without abnormal findings, Z12.5 - Encounter for screening for malignant neoplasm of prostate TSH reflex Free T4 Today Z00.00 - Encounter for general adult medical examination without abnormal findings Testosterone, Free/Total Today R68.82 - Decreased libido Comprehensive [place]. Panel Fast Today Z00.00 - Encounter for general adult medical examination without abnormal findings Complete Blood Count Auto Diff Today Z00.00 - Encounter for general adult medical examination without abnormal findings Lipid Panel Today Z00.00 - Encounter for general adult medical examination without abnormal findings UA CC w/rflx Micro + Cult Today Z00.00 - Encounter for general adult medical examination without abnormal findings Referrals Gastroenterology Referral Z12.11 - Encounter for screening for malignant neoplasm of colon Medications: New doxycycline hyclate 100 mg PO BID 42 tabs 0RF 21 days levalbuterol tartrate 45 mcg/actuation 2 puffs inhalation Q4-6H PRN 15 grams 3RF shortness of breath 90 days
[2025-03-28 09:34] VITALS: BP 142/80; PULSE 86; RESP 14; TEMP 36.4; O2SAT 98; BMI 32.1
--- OUTSIDE RECORDS SUMMARY | 2025-03-28 10:25 | XMS_ITS | Clinical Summary ---
Author Organization [facility] [employer] [facility] lin Address [address] [facility] [place] [address] Care Team Providers Care Passenger Service Manager Name Role Phone Rajiv Lyons MD Primary [...] Adults 18 yrs or above (or HM Modifier)([facility]) 1990 Hepatitis C Virus Infection in Adolescents and Adults: Screening (or Modifier) ([facility]) 1990 [facility] Screening Reminder: Tamia camp for all adults ([facility]) 1990 Tobacco Smoking Cessation: i n Adults excluding Women: Behavioral and Pharmacotherapy Interventions ([facility]) 1990 DTaP/Tdap/Td Vaccines ([facility]) (1 - Tdap) 1991 Colorectal Cancer Screening 45 -75 Yrs (or HM Modifier ) 2017 Colorectal Cancer: FLEXIBLE SIGMOIDOSCOPY Screening every 5 yrs 2017 Colorectal Cancer: Fecal Imm unochemical Test (FIT) Annually [facility] 2017 Colorectal Cancer: High-sens itivity gFOBT Screening Annually [facility] 2017 Colorectal Cancer: Stool Col oguard Screening every 3 yrs 2017 Colorectal Cancer:CT Colonography Screening every 5 yr s 2017 Pneumococcal Vaccination Scr eening: Patients 50+ yrs of age ([facility]) (1 of 1 - PCV) 2022 Zoster/Shingles Vaccine Seri es Screening: Adults aged 18+ yrs (or HM Modifiers)([facility]) (1 of 2) 2022 Flu Vaccination: Yearly for ages 18mos through 64 years (or Modifier)([facility]) 01/31/2025 COVID-19 Vaccine Screening: Initial Series and Booster Status ([facility]) ( season) 2025 Medical Devices Not on file Insurance [facility] Care Teams Passenger Service Manager Relationship Specialty Start Date End Date Rajiv Lyons MD [address] [place] [phone] PCP - General 04/18/20
== END 2025-03-28 09:51 | disposition home or self-care (01) ==
PROVIDERS: PCP Family Medicine; Visit Provider Family Medicine
DX: Z00.00 Encounter for general adult medical examination without abnormal findings (principal); T63.481A Toxic effect of venom of other arthropod, accidental (unintentional), initial encounter; J45.909 Unspecified asthma, uncomplicated; Z12.5 Encounter for screening for malignant neoplasm of prostate; Z12.11 Encounter for screening for malignant neoplasm of colon

== ENCOUNTER 2025-03-28 09:28 | Outpatient (REF) | payer OTHER, SELFPAY ==
[2025-03-28 11:34] LABS: MANUAL DIFF FLAG NO
[2025-03-28 11:37] LABS: Hematocrit 44.9 % (42.0-52.0); Hemoglobin 14.8 g/dl (14.0-18.0); Imm Gran Abs Auto 0.01 X10*3/uL (0.00-0.03); Imm Gran Pct Auto 0.2 % (0.0-0.4); Lymphocytes Absolute Auto 0.9 X10*3/uL (1.2-4.9); Mean Corpuscular HGB Conc 33.0 g/dl (31.0-36.0); Mean Corpuscular Hemoglobin 30.0 pg (27.0-33.0); Mean Corpuscular Volume 91.1 fL (80.0-98.0); NRBC Abs Auto 0.000 X10*3/uL (0.0-0.012); NRBC Pct Auto 0.0 /100WBC (0.0-0.2); Platelet Count 220 X10*3/uL (160-400); Red Blood Count 4.93 X10*6/uL (4.60-5.80); White Blood Count 4.8 X10*3/uL (4.8-10.8)
[2025-03-28 12:37] LABS: Alanine Aminotransferase 30 U/L (0-40); Albumin Level 4.9 g/dL (3.5-5.0); Alkaline Phosphatase 59 U/L (39-117); Anion Gap 9 (12-20); Aspartate Amino Transferase 26 U/L (5-37); Blood Urea Nitrogen 16 mg/dL (9-16); Calcium 9.3 mg/dL (8.4-10.2); Carbon Dioxide 30 mmol/L (22-29); Chloride 105 mmol/L (96-108); Cholesterol 228 mg/dL (<200); Estimated Glomerular Filt Rate > 60; HDL Cholesterol 80 mg/dL (>40); Potassium 4.2 mmol/L (3.3-5.1); Sodium 140 mmol/L (135-145); Total Protein 7.2 g/dL (6.5-8.0); Triglycerides 52 mg/dL (<150)
[2025-04-03 16:18] LABS: Testosterone, Free 53.6 pg/mL (35.0-155.0)
== END 2025-03-28 09:29 | disposition home or self-care (01) ==
LOC: HO.WFDLDS 09:28
PROVIDERS: PCP Family Medicine; Visit Provider Family Medicine
DX: Z00.00 Encounter for general adult medical examination without abnormal findings (principal); Z12.5 Encounter for screening for malignant neoplasm of prostate; R68.82 Decreased libido; J45.909 Unspecified asthma, uncomplicated; Z79.2 Long term (current) use of antibiotics; Z79.899 Other long term (current) drug therapy; W57.XXXD Bitten or stung by nonvenomous insect and other nonvenomous arthropods, subsequent encounter
CPT/HCPCS: 36415; 80053; 80061; 84153; 84402; 84403; 84443; 85025; 96127; 99212; 99396

== ENCOUNTER 2025-04-18 10:36 | Outpatient (AMB) | payer OTHER, SELFPAY ==
--- NOTE | 2025-04-18 10:30 | A.OFFPC_ITS ---
Intake Visit Reasons: f/u CPE-labs via telemed Intake Note: Tj presents by phone to go over his latest lab results. Allergies No Known Allergies Allergy (Verified 04/18/25 10:30) Medication List - Last Reconciled 04/18/25 by Rajiv Gaines MD citalopram 20 mg PO DAILY 90 days levalbuterol tartrate 45 mcg/actuation 2 puffs inhalation Q4-6H PRN 90 days mupirocin 2% 1 appl topical TID Tobacco use date assessed: 04/18/25 Dental Screening Dental Screen Date: 04/18/25 Did you have a dental visit in the last 12 months?: No Did you have a dental problem in the last 6 months where you did not have access to dental care?: No Was dental information given to patient?: Patient has dentist HPI f/u CPE-labs via telemed HPI Details 54 y/o male presents to review CPE-labs. Had been having complaints of fatigue with decreased libido since lyme infection. Had given him a longer course of doxy. Labs drawn 03/28/25. Triglycerides 52. TC 228. LDL 138. HDL 80. Pt notes he drinks alcohol daily. Rest of labs were fine. PFSH Family History Other Mental health disorder Social History (Updated 04/18/25 @ 10:32 by Jeanne Troncoso CMA) Housing: House Alcohol intake: current Patient Tobacco Use Status: Never used Tobacco e-Cigarette/Vaping Use: Never Used Second Hand Smoke Exposure: No Use of substances other than those prescribed or required for medical reasons: No service: No Current occupational status: employed Current occupational exposures/hazards: No Cognitive needs: No Hearing needs: No Vision needs: No Questionnaire Thrive Questionnaire Date Thrive assessed: 03/28/25 I am a: Patient What is your living situation today?: I have a steady place to live Within the past 12 months, did the food you bought not last and you didn't have the money to get more?: Never true Within the past 12 months, did you worry whether your food would run out before you got money to buy more?: Never true Do you have trouble paying for medicines?: No Do you have trouble getting transportation to medical appointments?: No Do you have trouble paying your heating and electricity bill?: No Do you have trouble taking care of your child, family member or friend?: No Do you have trouble with day-to-day activities such as bathing, preparing meals, shopping, managing finances, etc.?: No Are you currently unemployed and looking for a job?: Yes Are you interested in more education?: No Please select the resources that you would like help with: None Currently or been in a relationship where the following occur: No concerns reported THRIVE Score: 0 ADRIAN-7 AMB Questionnaire ADRIAN-7 Date ADRIAN - 7 assessed: 03/28/25 Source: Developed by Drs. Huseyin Lara, Kelli Tierney, Kosta Sparks and colleagues, with an educational alee from [employer]. Review of Systems Const Denies chills, Denies fatigue, Denies fever(s), Denies headache(s) and Denies weakness ENT Denies dizziness and Denies headache(s) Card Denies dyspnea Resp Denies cough, Denies dyspnea, Denies wheezing and Denies other (shortness of breath) Musc Denies numbness and Denies tingling Neuro Denies dizziness, Denies headache(s), Denies numbness, Denies tingling and Denies weakness Psych Denies anxiety and Denies depression Endo Denies fatigue Aller/Immun Denies wheezing Physical exam (Primary Care) Tobacco/Smoking Status: Tobacco use Status Tobacco use date assessed 04/18/25 04/18/25 10:32 Patient Tobacco Use Status Never used Tobacco 04/18/25 10:32 e-Cigarette/Vaping Use Never Used 04/18/25 10:32 Thrive Assessment: Date of Thrive Assessment Date Thrive assessed 03/28/25 04/18/25 10:32 Currently or been in a relationship where the following occur: No concerns reported Telehealth Telehealth Telehealth Platform: Telephone Location of provider rendering services: practice address Location of patient: address on file Patient Identification confirmed using: Name, : Yes Telehealth method: voice only Patient verbally consented to treatment: Yes Patient verbally consented to billing insurance company: Yes Patient informed of any privacy concerns related to visit: Yes Minutes spent on Phone/Video with Pt.: 8 Coding Level of Care Code Tele Est Pt Level 2 (64161) Diagnoses Hypercholesterolemia E78.00 History of Lyme disease Z86.19 Low libido R68.82 Fatigue R53.83 Alcohol use F10.90 Assessment & Plan Assessment & Plan (1) Hypercholesterolemia: Code(s): E78.00 - Pure hypercholesterolemia, unspecified Category: Medical Plan: Start atorvastatin 10 mg daily Will recheck lipids in 3 months (2) History of Lyme disease: Code(s): Z86.19 - Personal history of other infectious and parasitic diseases Category: Medical Plan: History of tick bite with erythema migrans rash Patient was treated for only about 14 days with doxycycline previously. He noted that he still had symptoms of difficulty with concentration and will mental fogginess Gave him a more definitive course of doxycycline but patient says he was unable to tolerated due to GI symptoms Will have him check a Lyme titer with reflex - may be positive but if negative we can rule out ongoing Lyme If positive will refer to ID for next steps (3) Low libido: Code(s): R68.82 - Decreased libido Category: Medical (4) Fatigue: Code(s): R53.83 - Other fatigue Category: Medical (5) Alcohol use: Code(s): F10.90 - Alcohol use, unspecified, uncomplicated Category: Social Hx Plan Ongoing issues with libido and he Have ruled out anemia and testosterone issues also thyroid issues Patient is drinking regularly. Also as above likely recent Lyme infection Dealing with Lyme infection. Ultimately may discussed with patient that he needs to decrease alcohol which was mentioned today. Orders: Orders Lipid Panel 2 Months E78.00 - Pure hypercholesterolemia, unspecified, Z00.00 - Encounter for general adult medical examination without abnormal findings Lyme IgG/IgM w/reflex to WB Today W57.XXXA - Bitten or stung by nonvenomous insect and other nonvenomous arthropods, initial encounter Comprehensive [place]. Panel Fast 2 Months E78.00 - Pure hypercholesterolemia, unspecified, Z00.00 - Encounter for general adult medical examination without abnormal findings Medications: New atorvastatin (Lipitor) 10 mg PO BEDTIME 90 tabs 3RF 90 days
== END 2025-04-18 12:12 | disposition home or self-care (01) ==
LOC: HO.HMCFM 10:36
PROVIDERS: PCP Family Medicine; Visit Provider Family Medicine
DX: E78.00 Pure hypercholesterolemia, unspecified (principal); Z86.19 Personal history of other infectious and parasitic diseases; R68.82 Decreased libido; R53.83 Other fatigue; F10.90 Alcohol use, unspecified, uncomplicated

== ENCOUNTER 2025-04-24 11:21 | Outpatient (AMB) | payer OTHER, SELFPAY ==
[2025-04-24 11:28] VITALS: BP 146/90; PULSE 96; TEMP 36.9; O2SAT 100; BMI 32.2
--- NOTE | 2025-04-24 11:28 | AM.OFFWIN_ITS ---
Intake Vital Signs 04/24/25 11:28 Height 5 ft 8 in Weight 212 lb BMI 32.2 BP 146/90 H Blood Pressure Location Rt brachial Position Sitting Pulse 96 Pulse Source Pulse Oximeter Temp 98.4 F Temp Source Oral Pulse Oximetry (%) 100 Oxygen Delivery Method Room Air Intake Visit Reasons: EP Tick bite Intake Note: EP complaints of a tick bite. He observed the sign today in the morning. His blood pressure also elevated. Patient Tobacco Use Status: Never used Tobacco Allergies No Known Allergies Allergy (Verified 04/24/25 11:36) Do you need a note to return to daycare/school/sports/work: No HPI HPI Comments History of Present Illness Details History - The patient is a 54-year-old male pres enting with a tick bite. - He states that he has been bitten by a tick several times. - He was seen by his PCP earlier this mo nth for symptoms which he believed were related to Lyme. - Previously treated with doxycycline an d he was also given doxycycline for 30 days, discontinued due to gastrointestinal side effects. Symptoms included headaches, brain fog, and fatigue, but no fever. - He has a Lyme test results ordered by Dr. Gaines, which he has not gotten done yet. - He found a tick on his stomach again a nd tried to get it out but left a piece in. - He denies fever, chills, or rashes. high blood pressure - Elevated blood pressure readings noted today in the office, with a recent measurement of 146/90 mmHg. - Anxiety and dietary factors, including high salt intake, are contributing factors. - He is not currently taking medications for blood pressure and has no diagnosis. - He does have headaches. - He denies visual changes, CP, SOB, or leg edema. - He does drink alcohol nightly. Physical Exam General: Cooperative, healthy appearing, comfortable, no acute distress and well developed Orientation: Patient oriented x3 Limitations: No limitations Head: Normal to inspection Eyes: Appearance normal, both eyes and all related structures. Neck: Normal visual inspection and Yes full ROM Respiratory: Normal respiratory effort and able to speak in complete sentences. Cardiac: No m/r/g noted. RRR Skin: Small erythematous area noted on the left lower abdominal wall with a black piece of tick noted. No bleeding, discharge, induration, or streaking noted. Patient was informed and verbally consented to the use of an ambient scribe for clinic note documentation during this visit. PFSH Family History Other Mental health disorder Social History (Updated 04/18/25 @ 10:32 by Jeanne Troncoso CMA) Housing: House Alcohol intake: current Patient Tobacco Use Status: Never used Tobacco e-Cigarette/Vaping Use: Never Used Second Hand Smoke Exposure: No service: No Current occupational status: employed Current occupational exposures/hazards: No Cognitive needs: No Hearing needs: No Vision needs: No Review of Systems Const All systems reviewed & are unremarkable except as noted in HPI and below Physical Exam Vital Signs: Last Vital Signs Temp 98.4 F 04/24/25 11:28 Pulse 96 04/24/25 11:28 BP 146/90 H 04/24/25 11:28 Pulse Ox 100 04/24/25 11:28 Oxygen Delivery Method Room Air 04/24/25 11:28 BMI result Body Mass Index 32.2 Office Procedures AMB Foreign Body Removal Details: Cleaned the area with alcohol. Used tweezers to remove a piece of the tick. Bacitracin and bandaid applied. Procedure well tolerated. Foreign Body Removal Simple: [id number], simple Procedure code (CPT) selection complete Assessment & Plan Assessment & Plan (1) HTN (hypertension): Code(s): I10 - Essential (primary) hypertension Qualifiers: Hypertension type: primary hypertension Qualified Code(s): I10 - Essential (primary) hypertension Plan: Most likely HTN plan - check and record BP at home - discussed diet and reducing salt - daily exercise - needs a f/u with PCP to discuss treatment options if the BP continues to be elevated (2) Tick bite: Code(s): W57.XXXA - Bitten or stung by nonvenomous insect and other nonvenomous arthropods, initial encounter Qualifiers: Encounter type: subsequent encounter Site of tick bite: abdominal wall Qualified Code(s): S30.861D - Insect bite (nonvenomous) of abdominal wall, subsequent encounter; W57.XXXD - Bitten or stung by nonvenomous insect and other nonvenomous arthropods, subsequent encounter Plan Most likely Lyme from a tick bite Removed piece of tick in the office today that was retained in the abdominal wall Plan - Await Lyme test results. -Consider referral to infectious disease specialist if positive. -Alternative medication to doxycycline will be considered due to gastrointestinal intolerance. - follow up with PCP Orders: Orders AMB Removal of foreign body Today W57.XXXA - Bitten or stung by nonvenomous insect and other nonvenomous arthropods, initial encounter Medications: New cefuroxime axetil 500 mg PO Q12H 42 tabs 0RF 21 days Coding Level of Care Code Est Pt Level 4 (89012) Diagnoses Primary hypertension I10 Hypertension type: primary hypertension Tick bite of abdominal wall, subsequent encounter S30.861D; W57.XXXD Encounter type: subsequent encounter Site of tick bite: abdominal wall CPT Codes Details - Foreign body simple: [id number], simple ([id number])
--- OUTSIDE RECORDS SUMMARY | 2025-04-24 14:32 | XMS_ITS | Clinical Summary ---
Author Organization [facility] lin Address [address] [facility] [email or web address] [address] Care Team Providers Care [employer] Name Role Phone Rajiv Lyons MD Primary [...] Adults 18 yrs or above (or HM Modifier)([facility]) 1990 Hepatitis C Virus Infection in Adolescents and Adults: Screening (or Modifier) ([facility]) 1990 [facility] Screening Reminder: [place]ia camp for all adults ([facility]) 1990 Tobacco Smoking Cessation: i n Adults excluding Women: Behavioral and Pharmacotherapy Interventions ([facility]) 1990 DTaP/Tdap/Td Vaccines ([facility]) (1 - Tdap) 1991 Colorectal Cancer Screening 45 -75 Yrs (or HM Modifier ) 2017 Colorectal Cancer: FLEXIBLE SIGMOIDOSCOPY Screening every 5 yrs 2017 Colorectal Cancer: Fecal Imm unochemical Test (FIT) Annually [facility] 2017 Colorectal Cancer: High-sens itivity gFOBT Screening Annually [facility] 2017 Colorectal Cancer: Stool Col oguard Screening every 3 yrs 2017 Colorectal Cancer:CT Colonography Screening every 5 yr s 2017 Pneumococcal Vaccination Scr eening: Patients 50+ yrs of age ([facility]) (1 of 1 - PCV) 2022 Zoster/Shingles Vaccine Seri es Screening: Adults aged 18+ yrs (or HM Modifiers)([facility]) (1 of 2) 2022 Flu Vaccination: Yearly for ages 18mos through 64 years (or Modifier)([facility]) 01/31/2025 COVID-19 Vaccine Screening: Initial Series and Booster Status ([facility]) ( season) 2025 Medical Devices Not on file Insurance [facility] Care Teams [employer] Relationship Specialty Start Date End Date Rajiv Lyons MD [address] [place] [phone] PCP - General 04/18/20
== END 2025-04-24 13:13 | disposition home or self-care (01) ==
PROVIDERS: PCP Family Medicine; Visit Provider Physician Assistant Medical
DX: I10 Essential (primary) hypertension (principal); S30.861D Insect bite (nonvenomous) of abdominal wall, subsequent encounter; W57.XXXD Bitten or stung by nonvenomous insect and other nonvenomous arthropods, subsequent encounter

== ENCOUNTER 2025-04-24 11:21 | Outpatient (REF) | payer OTHER, SELFPAY ==
[2025-04-25 06:38] LABS: Lyme Blot 2.95 index
[2025-04-29 11:26] LABS: Lyme Abs Screen POSITIVE
[2025-04-29 12:34] LABS: 39KD (IgG) Band REACTIVE; 41KD (IgG) Band REACTIVE; Lyme IgG Blot Interp NEGATIVE (NEGATIVE); Lyme IgM Blot Interp NEGATIVE (NEGATIVE)
== END 2025-04-24 11:22 | disposition home or self-care (01) ==
LOC: HO.HMGCLDS 11:21
PROVIDERS: PCP Family Medicine; Visit Provider Family Medicine
DX: S30.861D Insect bite (nonvenomous) of abdominal wall, subsequent encounter (principal); I10 Essential (primary) hypertension; W57.XXXD Bitten or stung by nonvenomous insect and other nonvenomous arthropods, subsequent encounter
CPT/HCPCS: 36415; 86617; 86618; 99212

== ENCOUNTER 2025-06-12 10:34 | Outpatient (AMB) | payer OTHER, SELFPAY ==
[2025-06-12 10:45] VITALS: BP 146/90; PULSE 87; RESP 15; O2SAT 98; BMI 32.2
--- NOTE | 2025-06-12 10:45 | MHC.OFFWIV ---
Intake Vital Signs 06/12/25 10:45 Height 5 ft 8 in Weight 212 lb BMI 32.2 BP 146/90 H Blood Pressure Location Rt brachial Position Sitting Respiration 15 Pulse 87 Pulse Source Pulse Oximeter Pulse Oximetry (%) 98 Oxygen Delivery Method Room Air Intake Visit Reasons: EP chest pain high blood pressure Intake Note: Patient presents c/o chest pain, felt a buzzing & thought it was his phone - started yesterday. Patient mentions he received his allergy shot earlier that day & this all started afterwards. Patient Tobacco Use Status: Never used Tobacco Allergies No Known Allergies Allergy (Verified 06/12/25 10:47) Medication List - Last Reconciled 06/12/25 by Amy Tejeda NP atorvastatin (Lipitor) 10 mg PO BEDTIME 90 days citalopram 20 mg PO DAILY 90 days levalbuterol tartrate 45 mcg/actuation 2 puffs inhalation Q4-6H PRN 90 days HPI HPI Comments History of Present Illness Details 54 y/o male presents to walk-in clinic with chest pain since yesterday. Describes sensation as chest tightness accompanied by chest wall tenderness. Symptoms began after receiving his routine allergy injection (he gets allergy shots every 2 weeks). Denies shortness of breath, wheezing, palpitations, dizziness, syncope, nausea, or radiation of pain. No recent URI symptoms. Notes history of generalized anxiety; currently takes Citalopram. Reports strong family history of mental health conditions (mother and siblings). Patient expresses interest in engaging in therapy and is agreeable to warm hand-off to Community Navigator (Radha) for referral. [facility], [facility] Family History Other Mental health disorder Social History (Updated 04/18/25 @ 10:32 by Jeanne Troncoso CMA) Housing: House Alcohol intake: current Patient Tobacco Use Status: Never used Tobacco e-Cigarette/Vaping Use: Never Used Second Hand Smoke Exposure: No service: No Current occupational status: employed Current occupational exposures/hazards: No Cognitive needs: No Hearing needs: No Vision needs: No Review of Systems Const All systems reviewed & are unremarkable except as noted in HPI and below Physical Exam Vital Signs: Last Vital Signs Pulse 87 06/12/25 10:45 Resp 15 06/12/25 10:45 BP 146/90 H 06/12/25 10:45 Pulse Ox 98 06/12/25 10:45 Oxygen Delivery Method Room Air 06/12/25 10:45 BMI result Body Mass Index 32.2 Const General: no acute distress and anxious Nutritional Appearance: obese Orientation/consciousness: patient oriented x3 Resp Effort & Inspection: normal respiratory effort Cardio Rate: regular rate Neuro General: patient oriented x3, gait normal and moves all extremities Psych Speech and movement: Normal speech and movement present Attitude: cooperative Thought process: Normal thought process present Thought content: suicidality, no homicidality, no delusions, No delusions and no hallucinations Insight: Good insight present (Psych) Judgement: Good judgement present (Psych) Assessment & Plan Assessment & Plan (1) Anxiety: Code(s): F41.9 - Anxiety disorder, unspecified Plan: ECG unremarkable. Chest wall pain / musculoskeletal chest pain ? Symptoms are reproducible with palpation and not associated with cardiopulmonary red flags. Onset after allergy injection but no signs of systemic allergic reaction. Generalized Anxiety Disorder ? Stable on Citalopram; chest tightness may be partially anxiety-related. Psychosocial stressors / interest in therapy ? Strong family history of mental health conditions; patient motivated to begin therapy. Warm hand-off completed to Community Navigator (Radha) for behavioral health therapy referral. Continue current Citalopram as prescribed. Added Hydroxyzine 25 mg at Bedtime. Encouraged ongoing self-care practices and stress-reduction techniques. Orders: Orders AMB EKG-In Office Today R07.89 - Other chest pain Medications: New hydroxyzine HCl 25 mg PO BEDTIME 30 tabs 1RF F41.9 - Anxiety disorder, unspecified Discontinued cefuroxime axetil Discontinued Reason: Patient Completed Course 500 mg PO Q12H 21 days 42 tabs 0RF Coding Level of Care Code Est Pt Level 4 (02551) Diagnoses Anxiety F41.9 Time Spent (min) 20
== END 2025-06-12 11:49 | disposition home or self-care (01) ==
PROVIDERS: PCP Family Medicine; Visit Provider Nurse Practitioner Family
DX: F41.9 Anxiety disorder, unspecified (principal)

== ENCOUNTER → 2025-06-12 10:34 | Outpatient (BNVA) | payer OTHER, SELFPAY | PROVIDERS: PCP Family Medicine; Visit Provider Nurse Practitioner Family | DX: R07.89 Other chest pain (principal); F41.9 Anxiety disorder, unspecified | CPT/HCPCS: 99212 ==